=== PATIENT | female | born 1965 | race Hispanic/Latino ===

== ENCOUNTER 2019-03-31 15:45 | Emergency (ER) | payer OTHER ==
[2019-03-31 16:19] VITALS: BP 157/87
--- NOTE | 2019-03-31 16:19 | Event Note ---
ED Screening Note Date of service: 03/31/19 Time: 16:16 ED Screening Note: 53 y/o female comes in for urinary symptoms times 1 month. Currently on Cipro and pyridine. Reports prolapse badder. This initial assessment/diagnostic orders/clinical plan/treatment(s) is/are subject to change based on patients health status, clinical progression and re- assessment by fellow clinical providers in the ED. Further treatment and workup at subsequent clinical providers discretion. Patient/guardian urged not to elope from the ED as their condition may be serious if not clinically assessed and managed. Initial orders include:
[2019-03-31 17:23] LABS: Bilirubin,Urine NEG (Negative); Blood,Urine NEG (Negative); Color,Urine Amber (Yellow); Mucus,Urine FEW /HPF
[2019-03-31] MEDS ORDERED: ROCEPHIN IM ONE (18:04)
[2019-03-31] MEDS ORDERED: XYLOCAINE 1% MPF 5 mL INFILTRATI ONE (18:04)
[2019-03-31] MEDS ORDERED: TYLENOL PO ONE (18:05)
--- NOTE | 2019-03-31 18:39 | Emergency Department Report ---
ED Female HPI - General Chief complaint: Urogenital-Female Stated complaint: UTI/BLADDER ISSUES Time Seen by Provider: 03/31/19 16:16 Source: patient Mode of arrival: Ambulatory Limitations: No Limitations - History of Present Illness Initial comments: 53 y/o female comes in for urinary symptoms times 1 month. Currently on Cipro and pyridine. Reports prolapse badde. had ct , wet and vaginal exam at [facility] 4 days ago states she is schedule for uterine prolapse repair with Dr. Suarez on 04/09/2019 , there is no vaginal bleeding , no urterine protrusion no abdominal pain, pt states primary complaint is pain , as she did not receive pain medication from [facility] MD Complaint: dysuria Onset/Timin -: month(s) Radiation: suprapubic Severity: moderate Severity scale (0 -10): 4 Quality: cramping, aching Consistency: constant Improves with: none Worsens with: urination Are you Now?: No Associated Symptoms: abdominal pain (superpubic ), dysuria. denies: vaginal discharge, vaginal bleeding, nausea/vomiting, fever/chills, headaches, loss of appetite, hematuria, rash, seizure, shortness of breath, syncope, weakness - Related Data Sexually active: No Previous Rx's Medication Instructions Recorded Last Taken Type Acetaminophen/Codeine [Tylenol 1 tab PO Q6H PRN #12 tab 03/31/19 Unknown Rx /Codeine # 3 tab] Allergies Allergy/AdvReac Type Severity Reaction Status Date / Time ibuprofen AdvReac Swelling Verified 03/31/19 15:50 ketorolac [From Toradol] AdvReac Swelling Verified 03/31/19 15:50 naproxen AdvReac Swelling Verified 03/31/19 15:50 tramadol [From Ultram] AdvReac Swelling Verified 03/31/19 15:50 ED Review of Systems ROS: Stated complaint: UTI/BLADDER ISSUES Other details as noted in HPI Constitutional: denies: chills, fever Eyes: denies: eye pain, eye discharge, vision change ENT: denies: ear pain, throat pain Respiratory: denies: cough, shortness of breath, wheezing Cardiovascular: denies: chest pain, palpitations Endocrine: no symptoms reported Gastrointestinal: denies: abdominal pain, nausea, vomiting, diarrhea, constipation, hematemesis Genitourinary: urgency, dysuria, frequency. denies: hematuria, discharge Musculoskeletal: denies: back pain, joint swelling, arthralgia Skin: denies: rash, lesions Neurological: denies: headache, weakness, paresthesias Psychiatric: denies: anxiety, depression Hematological/Lymphatic: as per HPI ED Past Medical Hx - Surgical History Additional Surgical History: upper intestine, hernia, partial hysterectomy - Social History Smoking Status: Current Every Day Smoker Substance Use Type: None - Medications Home Medications: Home Medications Medication Instructions Recorded Confirmed Last Taken Type Acetaminophen/Codeine [Tylenol 1 tab PO Q6H PRN #12 tab 03/31/19 Unknown Rx /Codeine # 3 tab] ED Physical Exam - General Limitations: No Limitations General appearance: alert, in no apparent distress - Head Head exam: Present: atraumatic, normocephalic - Eye Eye exam: Present: normal appearance, PERRL, EOMI Pupils: Present: normal accommodation - ENT ENT exam: Present: mucous membranes moist - Neck Neck exam: Present: normal inspection, full ROM. Absent: tenderness, meningismus, lymphadenopathy, thyromegaly - Respiratory Respiratory exam: Present: normal lung sounds bilaterally. Absent: respiratory distress, wheezes, stridor, chest wall tenderness - Cardiovascular Cardiovascular Exam: Present: regular rate, normal rhythm, normal heart sounds. Absent: systolic murmur, diastolic murmur, rubs, gallop - GI/Abdominal GI/Abdominal exam: Present: soft, normal bowel sounds. Absent: distended, tenderness, bruit, hernia - Rectal Rectal exam: Present: deferred - Extremities Exam Extremities exam: Present: normal inspection, full ROM, normal capillary refill. Absent: tenderness, pedal edema, joint swelling, calf tenderness - Back Exam Back exam: Present: normal inspection, full ROM, tenderness. Absent: CVA tenderness (R), CVA tenderness (L), muscle spasm, paraspinal tenderness, rash noted - Neurological Exam Neurological exam: Present: alert, oriented X3, CN II-XII intact, normal gait, reflexes normal. Absent: motor sensory deficit - Psychiatric Psychiatric exam: Present: normal affect, normal mood - Skin Skin exam: Present: warm, dry, intact, normal color. Absent: rash ED Course Vital Signs 03/31/19 16:14 Temperature 97.9 F Pulse Rate 100 H Respiratory 20 Rate Blood Pressure 157/87 O2 Sat by Pulse 95 Oximetry ED Medical Decision Making - Lab Data Lab Results 03/31/19 Range/Units 16:50 Urine Color Gabi (Yellow) Urine Turbidity Clear (Clear) Urine pH 5.0 (5.0-7.0) Ur Specific [place] 1.018 (1.003-1.030) Urine Protein 30 mg/dl (Negative) mg/dL Urine Glucose (UA) Neg (Negative) mg/dL Urine Ketones Neg (Negative) mg/dL Urine Blood Neg (Negative) Urine Nitrite Pos (Negative) Urine Bilirubin Neg (Negative) Urine Urobilinogen 4.0 (<2.0) mg/dL Ur Leukocyte Esterase Neg (Negative) Urine WBC (Auto) 3.0 (0.0-6.0) /HPF Urine RBC (Auto) 13.0 (0.0-6.0) /HPF U Epithel Cells (Auto) 4.0 (0-13.0) /HPF Urine Mucus Few /HPF - Medical Decision Making pain improved, pt tx with rocephin in ed for uTI, will complete cipro as currently rx, will follow up with NEURODIAGNOSTIC TECH iN 2-3 days and keep appt for Uterine prolapse repair in , pt is currently a/o x 3 tolerating po intake with fever or chills no voiding problem pt dc'd in stable condition at this time, will rx tylenol prn pain , pt will follow up with NEURODIAGNOSTIC TECH tomorrow. Critical care attestation.: If time is entered above; I have spent that time in minutes in the direct care of this critically ill patient, excluding procedure time. ED Disposition Clinical Impression: Dysuria Abdominal pain Qualifiers: Abdominal location: generalized Qualified Code(s): R10.84 - Generalized abdominal pain Disposition: DC- TO HOME OR SELFCARE Is pt being admited?: No Does the pt Need Aspirin: No Condition: Stable Instructions: Dysuria (ED) Prescriptions: Acetaminophen/Codeine [Tylenol /Codeine # 3 tab] 1 tab PO Q6H PRN #12 tab PRN Reason: pain Referrals: EMMA SUAREZ MD [Staff Physician] - 3-5 Days Forms: Work/School Release Form(ED) Time of Disposition: 18:45
[2019-03-31] MEDS ORDERED: TYLENOL #3 PO ONE (19:16)
[2019-03-31] MEDS ORDERED: TYLENOL #3 ONE (19:17)
== END 2019-03-31 19:18 | disposition home or self-care (01) ==
LOC: ED 15:45
DX: R30.0 Dysuria (principal); R10.9 Unspecified abdominal pain; F17.200 Nicotine dependence, unspecified, uncomplicated; Z90.710 Acquired absence of both cervix and uterus; Z79.899 Other long term (current) drug therapy; Z88.8 Allergy status to other drugs, medicaments and biological substances; Z88.6 Allergy status to analgesic agent
CPT/HCPCS: 81001; 87086; 96372; 99283; J0696